=== PATIENT | male | born 1990 | race Caucasian/White ===

== ENCOUNTER 2022-01-29 17:46 | Emergency (ER) | payer OTHER ==
[2022-01-29] MEDS ORDERED: Lidocaine 1% (PF) 30 ML VIAL ONE (18:00)
[2022-01-29] MEDS ORDERED: Bacitracin 1 PK ONE (18:22)
== END 2022-01-29 18:55 ==
LOC: NAV ERS 17:46
DX: S61.211A Laceration without foreign body of left index finger without damage to nail, initial encounter (principal); W45.8XXA Other foreign body or object entering through skin, initial encounter
CPT/HCPCS: 12001; J2001